=== PATIENT | female | born 1990 | race African-American/Black ===

== ENCOUNTER 2022-04-11 20:05 | Emergency (ER) | payer MEDICAID ==
[~2022-04-11] VITALS: Ht 160 cm; Wt 57.2 kg
[2022-04-11 20:33] VITALS: BP 115/76
--- NOTE | 2022-04-11 20:41 | NUR ---
PATIENT PROVIDED WITH URINE COLLECTION CUP FOR URINE SAMPLE
--- NOTE | 2022-04-11 20:42 | NUR ---
PATIENT AMBULATED BACK TO [facility] IN STABLE CONDITION
--- NOTE | 2022-04-11 21:20 | NUR ---
Patient discharged with v/s stable. Written and verbal after care instructions given and explained. Patient verbalized understanding. Ambulatory with steady gait. All questions addressed prior to discharge. Advised to follow up with PMD. DX: ABNORMAL UTERINE BLEEDING
== END 2022-04-11 21:20 | disposition home or self-care (01) ==
LOC: MED 20:05
DX: N93.9 Abnormal uterine and vaginal bleeding, unspecified (principal)
CPT/HCPCS: 81002; 81025; 99282

== ENCOUNTER 2022-04-27 14:08 | Emergency (ER) | payer MEDICAID ==
[~2022-04-27] VITALS: Ht 162.6 cm; Wt 57.6 kg
[2022-04-27 14:15] VITALS: BP 105/76
--- NOTE | 2022-04-27 14:30 | NUR ---
32/F WALKED IN C/O CHILLS, COUGH AND RUNNY NOSE ACCOMPANIED BY DIFFICULTY BREATHING AND LOSS OF TASE AND SMELL ONSET YESTERDAY. DENIES KNOWN CONTACT WITH SICK. ON ROOM AIR, NO ACUTE DISTRESS NOTED. VITALS STABLE. AAO4, AMBULATORY.
--- NOTE | 2022-04-27 14:38 | NUR ---
COVID AND FLU SWAB COLLECTED AND SENT TO LAB
[2022-04-27] MEDS ORDERED: NACL 0.9% 1,000 ML IV ONE (14:40)
[2022-04-27] MEDS ORDERED: ONDANSETRON 4 MG/2 ML VIAL IVP ONE (14:40)
[2022-04-27] MEDS ORDERED: ALBUTEROL 0.083% 2.5 MG/3 ML NEBU INH ONE (14:40)
[2022-04-27] MEDS ORDERED: ACETAMINOPHEN 100 ML IV PRN (14:40)
--- NOTE | 2022-04-27 14:45 | NUR ---
RT AT BEDSIDE FOR BR TX
--- NOTE | 2022-04-27 15:00 | NUR ---
IV ESTABLISHED TO RIGHT AC WITH 20G.
[2022-04-27 15:15] LABS: EOSINOPHILS % (AUTO) 0.6 % (0.0-4.0); HEMATOCRIT 41.6 % (36-48); HEMOGLOBIN 14.1 g/dL (12.0-16.0); LYMPHOCYTES # (AUTO) 0.7 K/uL (2.5-16.5); LYMPHOCYTES % (AUTO) 16.5 % (20.5-51.1); MEAN CORPUSCULAR HEMOGLOBIN 29 pg (27-31); MEAN CORPUSCULAR HGB CONC 34 g/dL (33-37); MEAN CORPUSCULAR VOLUME 84.7 fL (80-94); MONOCYTES % (AUTO) 22.1 % (1.7-9.3); NEUTROPHILS # (AUTO) 2.6 K/uL (1.8-7.7); NEUTROPHILS % (AUTO) 59.8 % (42.2-75.2); PLATELET COUNT (AUTO) 216 K/uL (140-450); RED BLOOD CELL COUNT(AUTO) 4.91 MIL/uL (4.20-5.40); RED CELL DISTRIBUTION WIDTH 13.8 % (11.6-13.7); WHITE BLOOD COUNT (AUTO) 4.4 K/uL (4.8-10.8)
[2022-04-27 15:27] LABS: APPEARANCE,URINE CLEAR (CLEAR); BILIRUBIN,URINE NEGATIVE (NEGATIVE); BLOOD, URINE NEGATIVE (NEGATIVE); COLOR,URINE YELLOW (YELLOW); LEUKOCYTE ESTERASE ,URINE NEGATIVE (NEGATIVE); NITRITE, URINE NEGATIVE (NEGATIVE); UGLUCOSE NEGATIVE (NEGATIVE)
[2022-04-27 15:41] LABS: ALBUMIN 3.6 g/dL (3.4-5.0); ANION GAP 13.1 (8-16); CARBON DIOXIDE 29.7 mmol/L (21-32); CREATININE 0.7 mg/dL (0.6-1.3); POTASSIUM 3.8 mmol/L (3.5-5.1); TOTAL BILIRUBIN 0.3 mg/dL (0.0-1.0)
[2022-04-27] MEDS ORDERED: ALBU0.0912 IH (16:09)
[2022-04-27] MEDS ORDERED: TAM75 PO (16:09)
[2022-04-27] MEDS ORDERED: INHA1SPA24 MC (16:09)
[2022-04-27] MEDS ORDERED: IBUP-2213 PO (16:09)
[2022-04-27] MEDS ORDERED: ACET-10509 PO (16:09)
[2022-04-27 16:20] VITALS: BP 113/65
--- NOTE | 2022-04-27 16:25 | NUR ---
Patient discharged with v/s stable. Written and verbal after care instructions given and explained. Patient alert, oriented and verbalized understanding of instructions. Ambulatory with steady gait. All questions addressed prior to discharge. ID band removed. Patient advised to follow up with PMD. Patient educated on indication of medication including possible reaction and side effects. Opportunity to ask questions provided and answered.
== END 2022-04-27 16:25 | disposition home or self-care (01) ==
LOC: MED 14:08
DX: J10.1 Influenza due to other identified influenza virus with other respiratory manifestations (principal); Z20.822 Contact with and (suspected) exposure to COVID-19; Z79.899 Other long term (current) drug therapy
CPT/HCPCS: 36415; 80053; 81003; 81025; 84702; 85025; 87086; 87426; 87804; 94640; 96365; 96375; 99284; J2405; J7613; 96361; 96374